=== PATIENT | female | born 1960 | race Caucasian/White ===

== ENCOUNTER 2021-09-29 18:46 | Emergency (ER) | payer OTHER, SELFPAY ==
[2021-09-29] VITALS (15 sets, daily range): BP systolic 111–158; BP diastolic 52–78; PULSE 59–67; RESP 12–23; TEMP 36.5; O2SAT 96–100; BMI 23.3
--- NOTE | 2021-09-29 18:49 | DI.RAD.S_ITS ---
PROCEDURE: XR ANKLE RT MIN 3V INDICATIONS: fall with deformity TECHNIQUE: 3 views of the ankle were acquired. COMPARISON: None. FINDINGS: Bones: Displaced fracture of the lateral malleolus, medial malleolus and posterior malleolus. Talus is dislocated laterally. Soft tissues: No tibiotalar joint effusion. Achilles tendon appears normal. IMPRESSION: Right ankle trimalleolar fracture-dislocation. Dictated by: Irena Oquendo MD, PhD on 09/29/2021 at 19:22 Approved by: Irena Oquendo MD, PhD on 09/29/2021 at 19:23
--- NOTE | 2021-09-29 18:50 | ED_ITS ---
HPI - General Adult General Chief complaint: Extremity Injury, Lower Stated complaint: 15 ft. fall + slide Time Seen by Provider: 09/29/21 18:49 Source: patient and EMS Mode of arrival: EMS Limitations: no limitations History of Present Illness HPI narrative: Patient is a 61-year-old female brought in by EMS for evaluation of a right ankle injury. Patient was out on a hike. She was going down an incline where s he slipped and fell and twisted and got her right ankle caught up underneath her. She slid approximately 15 ft. Patient has an obvious deformity to right ankle. She arrived by EMS after receiving fentanyl. She also has an air cast on her right ankle. She reports no other injuries from the event. Related Data Previous Rx's Medication Instructions Recorded hydrocodone 5 mg-acetaminophen 325 1 tab PO Q4-6H PRN #20 tab 09/29/21 mg tablet Allergies Allergy/AdvReac Type Severity Reaction Status Date / Time No Known Drug Allergies Allergy Verified 09/29/21 19:43 Review of Systems Review of Systems ROS Unobtainable: All systems reviewed & are unremarkable except as noted in HPI and below Constitutional Constitutional: Denies headache(s) ENT Ears, Nose, Mouth, and Throat: Denies headache(s) Cardiovascular Cardiovascular: Reports system reviewed and no additional complaints, except as documented Respiratory Respiratory: Reports system reviewed and no additional complaints, except as documented Gastrointestinal Gastrointestinal: Reports system reviewed and no additional complaints, except as documented Musculoskeletal Comments: Right ankle deformity and pain Integumentary/Breasts Skin/Breast: Reports system reviewed and no additional complaints, except as documented Neurologic Neurologic: Denies headache(s) Hematologic/Lymphatic On Anticoagulants: No Allergic/Immunologic Allergic/Immunologic: Reports system reviewed and no additional complaints, except as documented Patient History Medical History Healthy adult Social History Smoking Status: Never smoker Exam Initial Vital Signs Initial Vital Signs: Vital Signs Temperature 97.7 F 09/29/21 18:55 Pulse Rate 63 09/29/21 18:55 Respiratory Rate 18 09/29/21 18:55 Blood Pressure 140/64 09/29/21 18:55 Pulse Oximetry 98 09/29/21 18:55 Const General: cooperative, comfortable and well developed HENMT Head: normal to inspection and normocephalic Chest Chest: normal inspection of the chest and No tenderness Resp Effort & Inspection: normal respiratory effort Auscultation: clear to auscultation bilaterally Cardio Rate: regular rate Rhythm: regular rhythm Pulses: dorsalis pedis present on the right GI Palpation: soft and No tender Back/Spine/Pelvis Cervical Spine: No cervical spinal tenderness Thoracic/Lumbar Spine: No thoracic spinal tenderness and No lumbar spinal tenderness Skin Other: Small abrasion over the anterior medial aspect of the distal tibia. No active bleeding. Neuro General: patient alert, patient awake and patient oriented x3 Speech: speech normal Extrem Other: Upper extremities unremarkable. Pelvis is stable. Left lower extremity unremarkable. Right hip and right knee unremarkable. Patient does have obvious deformity to the right ankle. Psych Appearance: well kempt Procedures Orthopedic Fracture Reduction Fracture #1: Time Out Performed: Yes Side: right Fracture Reduction Location: tibia and fibula Analgesia: procedural sedation Technique: direct manipulation Post Reduction X-rays Demonstrate: acceptable reduction Post-reduction neuro exam: no change Post-reduction vascular exam: no change Splint Applied: Yes Patient Tolerated Procedure: Well Orthopedic Splinting/Casting Injury #1: Side: right Lower Extremity Injury Location: ankle Lower Extremity Immobilizer: posterior splint and stirrup splint Post splinting neuro exam: no change Post splinting vascular exam: no change Placed by: Provider Procedural Sedation Consent signed: Yes Time out performed: Yes Indication: fracture/dislocation reduction Preparation: monitor worker applied, pulse oximeter, capnometry used, supplemental O2 applied, suction/airway equipment at bedside and IV secured Intraservice time/total sedation time (min): 10 ED Sedation Level: Moderate (Concious) Patient Tolerated Procedure: Well and No complications Scores GCS [place] coma scale eye opening: Spontaneous [place] coma scale verbal response: Orientated [place] coma scale motor response: Obey commands Raoul coma scale total score: 15 Nexus Score for C-Spine Focal Neurologic deficit present: No Midline spinal tenderness present: No Altered level of conciousness present: No Intoxication present: No Distracting Injury Present: No Nexus Criteria for C-spine: 0 Course Orders Ordered: ED Orders 09/29/21 18:49 XR ankle RT min 3V Stat 09/29/21 19:11 RT Consult Eval and Treat Now 09/29/21 19:41 XR ankle RT min 3V Stat 09/29/21 20:44 CT LE RT wo con Stat Discontinued Medications Hydrocodone Bitart/Acetaminophen (Hydrocodone/Acet 5/325 Prepack) 1 bottle MISC SEEINSTR ONE Stop: 09/29/21 20:48 Last Admin: 09/29/21 21:53 Dose: 1 bottle Documented by: YASIR Hydromorphone HCl (Hydromorphone 1 Mg Inj) 1 mg IV NOW ONE Stop: 09/29/21 18:52 Last Admin: 09/29/21 19:00 Dose: 1 mg Documented by: KENNEY Hydromorphone HCl (Hydromorphone 1 Mg Inj) 1 mg IV NOW ONE Stop: 09/29/21 20:11 Last Admin: 09/29/21 20:13 Dose: 1 mg Documented by: YASIR Hydromorphone HCl (Hydromorphone 0.5 Mg Inj) 0.5 mg IV NOW ONE Stop: 09/29/21 21:46 Last Admin: 09/29/21 21:52 Dose: 0.5 mg Documented by: YASIR Ondansetron HCl (Ondansetron 4 Mg Odt Prepack) 1 bottle MISC SEEINSTR ONE Stop: 09/29/21 21:37 Last Admin: 09/29/21 21:53 Dose: 1 bottle Documented by: YASIR Propofol (Propofol 200 Mg/20 Ml Vial) 100 mg IV NOW ONE Stop: 09/29/21 19:11 Last Admin: 09/29/21 19:32 Dose: 50 mg Documented by: YASIR Vital Signs Vital signs: Vital Signs - 8 hr 09/29/21 18:55 09/29/21 19:20 09/29/21 19:21 Temperature 97.7 F Pulse Rate 63 60 62 Respiratory Rate 18 18 Blood Pressure 140/64 151/76 H Pulse Oximetry 98 98 99 09/29/21 19:30 09/29/21 19:36 09/29/21 19:40 Temperature Pulse Rate 61 60 61 Respiratory Rate 23 21 21 Blood Pressure 149/69 H 129/55 L 134/60 Pulse Oximetry 98 97 98 09/29/21 19:45 09/29/21 19:50 09/29/21 19:55 Temperature Pulse Rate 60 60 59 L Respiratory Rate 20 20 15 Blood Pressure 146/65 H 150/67 H 146/65 H Pulse Oximetry 100 99 100 09/29/21 20:00 09/29/21 20:06 09/29/21 20:37 Temperature Pulse Rate 60 63 61 Respiratory Rate 13 12 Blood Pressure 152/78 H 158/72 H Pulse Oximetry 99 99 09/29/21 21:00 09/29/21 21:30 09/29/21 21:57 Temperature Pulse Rate 64 64 67 Respiratory Rate Blood Pressure 111/52 L Pulse Oximetry 98 98 96 Medical Decision Making Lab Data Labs: Point of Care Testing Test Results Not applicable Point of care testing: Point of Care Testing Test Results Not applicable Imaging Data Extremity x-ray #1: Radiologist's Impression: [address] [address] XRay Report Signed Patient: Lucia Carrero MR#: [id number] : 1960 Acct:[id number] Age/Sex: 61 / F Date of Service: 09/29/21 Loc: ED Accession Number: [id number] ?? Procedure: XR ankle RT min 3V Ordering Provider: Azam Pina D.O. PROCEDURE:? XR ANKLE RT MIN 3V ? INDICATIONS:? fall with deformity ? TECHNIQUE:? 3 views of the ankle were acquired.? ? COMPARISON:? None. ? FINDINGS:? ? Bones:? Displaced fracture of the lateral malleolus, medial malleolus and posterior malleolus.? Talus is dislocated laterally. ? Soft tissues:? No tibiotalar joint effusion.? Achilles tendon appears normal.? ? ? IMPRESSION:? Right ankle trimalleolar fracture-dislocation. ? ? ? Dictated by: Irena Oquendo MD, PhD on 09/29/2021 at 19:22 ? ? Approved by: Irena Oquendo MD, PhD on 09/29/2021 at 19:23?? Extremity x-ray #2: Radiologist's Impression: [address] [address] XRay Report Signed Patient: Lucia Carrero MR#: [id number] : 1960 Acct:[id number] Age/Sex: 61 / F Date of Service: 09/29/21 Loc: ED Accession Number: [id number] ?? Procedure: XR ankle RT min 3V Ordering Provider: Azam Pina D.O. PROCEDURE:? XR ANKLE RT MIN 3V ? INDICATIONS:? post reduction in splint ? TECHNIQUE:? 3 views of the ankle were acquired.? ? COMPARISON:? [facility], CR, XR ANKLE RT MIN 3V, 09/29/2021, 18:56. ? FINDINGS:? ? Bones:? No previously unidentified fractures or dislocations.? Ankle mortise remains abnormally malaligned with reduced severity of valgus angulation.? No suspicious bony lesions.? ? Soft tissues:? No tibiotalar joint effusion.? Achilles tendon appears normal.? ? ? IMPRESSION:? Improved valgus angulation malalignment after reduction and splinting of complex comminuted unstable left ankle fracture.? Surgical intervention is anticipated. ? Dictated by: Avelino Boyd M.D. on 09/29/2021 at 20:16 ? ? Approved by: Avelino Boyd M.D. on 09/29/2021 at 20:18?? CT LE: Radiologist's Impression: [place] [address] CT Scan Report Signed Patient: Lucia Carrero MR#: [id number] : 1960 Acct:[id number] Age/Sex: 61 / F Date of Service: 09/29/21 Loc: ED Accession Number: [id number] ?? Procedure: CT LE RT wo con Ordering Provider: Azam Pina D.O. PROCEDURE:? CT LE RT WO CON ? INDICATIONS:? Right trimalleolar fracture ? TECHNIQUE:? Noncontrast 1-1.5 mm axial sections acquired from above the tibiotalar joint to the bottom of the calcaneus, with coronal and sagittal reformats.? ? COMPARISON:? [facility], CR, XR ANKLE RT MIN 3V, 09/29/2021, 19:56. ? FINDINGS:? Image quality:? Excellent.? ? Bones:? Diagonal distal diaphyseal fibular fracture approximately 3 cm above the ankle mortise joint, slightly comminuted.? There is valgus angulation associated.? Also noted is a medial malleolar fracture at its base, displaced in relationship to the distal tibia which shows medial translocation by approximately 1/3 shaft width at the ankle mortise joint.? There is mild comminution at the distal articular surface of the tibia, very slightly impacted, and a posterior malleolar fracture can be seen associated with this injury.? Trauma to the calcaneus or navicular bone is not seen.? The talus appears intact. ? Soft tissues:? Soft tissue edema prominent, no significant focal hematoma. ? IMPRESSION:? Unstable trimalleolar fracture with mild comminution at the subchondral cortical margin of the distal tibia, with valgus angulation at the distal fibula and medial subluxation of the distal tibial articular surface across the talar dome by approximately a 1/3 shaft width.? No evidence of posttraumatic hematoma. ? ? Dictated by: Avelino Boyd M.D. on 09/29/2021 at 20:55 ? ? Approved by: Avelino Boyd M.D. on 09/29/2021 at 20:59?? MDM Narrative Medical decision making narrative: Patient with mechanical fall while hiking. Has an isolated right ankle fracture. She reports no other injuries from the event. Her cervical spine is cleared by nexus criteria. Patient was sedated with propofol fall with reduction and splint placement. Initial reduction not appropriate so the splint was reapplied. His CT scan was ordered. I did discuss the case with orthopedics however the patient is not from the local area and would like to follow-up with orthopedics closer to where she lives. She does understand that this is a surgical condition that will require follow-up. Patient states she has crutches at home so does not need crutches from us. Was given pain medication. She was given return precautions and follow-up instructions. She expressed understanding and agreement. Discharge Plan Departure Patient Disposition: Home Clinical Impression: Closed right ankle fracture Instructions: How to Use Crutches, DI for Ankle Fracture, How to Take Care of Your Splint Activity Restrictions/Additional Instructions: The splint that was placed today does need to be treated like cast. You need to keep it on and keep it clean and keep it dry. Please to not walk on your right leg. Use the crutches that you have at home. Use the pain medication as needed in as directed as well. It is important that when you return home you may contact with a orthopedic provider because this injury is going to require surgical fixation. Return to the emergency department for any new or worsening symptoms. Prescriptions: New hydrocodone-acetaminophen 5-325 mg tablet 1 tab PO Q4-6H PRN (Reason: pain) Qty: 20 0RF Referrals: Neva Orr MD [Physician] -
[2021-09-29] MEDS: HYDROMORPHONE 1 MG INJ IV ×2 (19:00→20:13)
--- NOTE | 2021-09-29 19:26 | PC.NURSE ---
Pt hiking with family member at [facility] this afternoon, slipped down an embankment and injured right ankle. Injury occurred at approximately 1650, EMS not able to reach pt until 1800 due to location. Pt was rescued by boat and transferred by ambulance. Family at the bedside.
[2021-09-29] MEDS: propofoL 200 MG/20 ML VIAL 100 MG IV (19:32)
--- NOTE | 2021-09-29 19:41 | DI.RAD.S_ITS ---
PROCEDURE: XR ANKLE RT MIN 3V INDICATIONS: post reduction in splint TECHNIQUE: 3 views of the ankle were acquired. COMPARISON: [facility], CR, XR ANKLE RT MIN 3V, 09/29/2021, 18:56. FINDINGS: Bones: No previously unidentified fractures or dislocations. Ankle mortise remains abnormally malaligned with reduced severity of valgus angulation. No suspicious bony lesions. Soft tissues: No tibiotalar joint effusion. Achilles tendon appears normal. IMPRESSION: Improved valgus angulation malalignment after reduction and splinting of complex comminuted unstable left ankle fracture. Surgical intervention is anticipated. Dictated by: Avelino Boyd M.D. on 09/29/2021 at 20:16 Approved by: Avelino Boyd M.D. on 09/29/2021 at 20:18
--- NOTE | 2021-09-29 20:44 | DI.CT.S_ITS ---
PROCEDURE: CT LE RT WO CON INDICATIONS: Right trimalleolar fracture TECHNIQUE: Noncontrast 1-1.5 mm axial sections acquired from above the tibiotalar joint to the bottom of the calcaneus, with coronal and sagittal reformats. COMPARISON: [facility], CR, XR ANKLE RT MIN 3V, 09/29/2021, 19:56. FINDINGS: Image quality: Excellent. Bones: Diagonal distal diaphyseal fibular fracture approximately 3 cm above the ankle mortise joint, slightly comminuted. There is valgus angulation associated. Also noted is a medial malleolar fracture at its base, displaced in relationship to the distal tibia which shows medial translocation by approximately 1/3 shaft width at the ankle mortise joint. There is mild comminution at the distal articular surface of the tibia, very slightly impacted, and a posterior malleolar fracture can be seen associated with this injury. Trauma to the calcaneus or navicular bone is not seen. The talus appears intact. Soft tissues: Soft tissue edema prominent, no significant focal hematoma. IMPRESSION: Unstable trimalleolar fracture with mild comminution at the subchondral cortical margin of the distal tibia, with valgus angulation at the distal fibula and medial subluxation of the distal tibial articular surface across the talar dome by approximately a 1/3 shaft width. No evidence of posttraumatic hematoma. Dictated by: Avelino Boyd M.D. on 09/29/2021 at 20:55 Approved by: Avelino Boyd M.D. on 09/29/2021 at 20:59
[2021-09-29] MEDS: HYDROMORPHONE 0.5 MG INJ IV (21:52)
[2021-09-29] MEDS: ONDANSETRON 4 MG ODT PREPACK 1 BOTTLE MISC (21:53)
[2021-09-29] MEDS: HYDROCODONE/ACET 5/325 PREPACK 1 BOTTLE MISC (21:53)
== END 2021-09-29 22:05 | disposition home or self-care (01) ==
PROVIDERS: Emergency Provider Emergency Medicine
DX: S82.851A Displaced trimalleolar fracture of right lower leg, initial encounter for closed fracture (principal); W01.0XXA Fall on same level from slipping, tripping and stumbling without subsequent striking against object, initial encounter; Y93.01 Activity, walking, marching and hiking
CPT/HCPCS: 27818; 29515; 36415; 73610; 73700; 96374; 96376; 99152; 99284; 99285; J1170; J2704